=== PATIENT | male | born 1985 | race Caucasian/White ===

== ENCOUNTER 2018-09-10 20:01 | Emergency (ER) | payer SELFPAY ==
[2018-09-10 20:16] VITALS: BP 135/90; PULSE 91; TEMP 98.5; O2SAT 98
--- NOTE | 2018-09-10 20:59 | C.PDOC ---
History Of Present Illness 33 y/o male presents complaining of bilateral epistaxis x 2 weeks which is intermittent in nature and usually can be controlled with the exception of today. He states that he had profuse bleeding from both nostrils and coughed up blood clots. He denies digital trauma but admits to dry home environment. 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 He denies any recent illness, fever, chills, sore throat, N/V, and bleeding disorders. Time Seen by Provider: 09/10/18 20:40 Chief Complaint (Nursing): ENT Problem History Per: Patient, Family History/Exam Limitations: None Onset/Duration Of Symptoms: Intermittent Episodes Current Symptoms Are (Timing): Gone Symptoms Have Been: Episodic Anticoagulant/Antiplatlet Use?: No Recent Aspirin Use: No Past Medical History Reviewed: Historical Data, Nursing Documentation, Vital Signs Vital Signs: Last Vital Signs Temp 98.5 F 09/10/18 20:13 Pulse 91 H 09/10/18 20:13 Resp 16 09/10/18 20:13 BP 135/90 09/10/18 20:13 Pulse Ox 98 09/10/18 20:13 - Medical History PMH: No Chronic Diseases Surgical History: No Surg Hx Family History: States: No Known Family Hx - Social History Hx Tobacco Use: No Hx Alcohol Use: No Hx Substance Use: No - Immunization History Hx Tetanus Toxoid Vaccination: No Hx Influenza Vaccination: No Hx Pneumococcal Vaccination: No Review Of Systems Constitutional: Negative for: Fever, Chills Eyes: Negative for: Pain, Vision Change, Redness ENT: Positive for: Other (epistaxis) Cardiovascular: Negative for: Chest Pain, Palpitations Respiratory: Negative for: Cough Gastrointestinal: Negative for: Nausea, Vomiting, Abdominal Pain Skin: Negative for: Rash, Lesions Neurological: Positive for: Dizziness. Negative for: Headache Physical Exam - Physical Exam Appears: Well, Non-toxic, No Acute Distress Skin: Normal Color, Warm, Dry Head: Atraumatic, Normacephalic, No Tenderness Eye(s): bilateral: Normal Inspection, PERRL Ear(s): Bilateral: Normal (TM intact, nonerythematous ) Nose: Discharge (bright red blood but no active bleeding; turbinate hypertrophy right> left ), No Tenderness Oral Mucosa: Moist Throat: Normal, No Erythema, No Exudate Neck: Normal, Normal ROM, Supple Lymphatic: No Adenopathy Cardiovascular: Rhythm Regular Respiratory: Normal Breath Sounds, No Wheezing Gastrointestinal/Abdominal: Bowel Sounds, Soft, Tenderness Neurological/Psych: Oriented x3, Normal Speech, Normal Cognition, Normal Sensation ED Course And Treatment O2 Sat by Pulse Oximetry: 98 Medical Decision Making Medical Decision Making: A/P: Recurrent Epistaxis B/L - stable at this time; no active bleeding - Afrin in each nostril BID x 3 days then discontinue - counseled patient on prevention (nasal lubricant gel, humidifier) and how to stabilize it (pinching nose for 15 mins and lean forward, Afrin soaked cotton balls) - advised against digital trauma - follow up with ENT for further evaluation Disposition Counseled Patient/Family Regarding: Diagnosis, Need For Followup - Disposition Referrals: Jake Montilla MD [Staff Provider] - Disposition: HOME/ ROUTINE Disposition Time: 21:19 Condition: GOOD Additional Instructions: LEIF CABELLO, thank you for letting us take care of you today. Your provider was Wade Yo MD and you were treated for NOSE BLEED. The emergency medical care you received today was directed at your acute symptoms. If you were prescribed any medication, please fill it and take as directed. It may take several days for your symptoms to resolve. Return to the Emergency Department if your symptoms worsen, do not improve, or if you have any other problems. Please contact your doctor or call one of the physicians/clinics you have been referred to that are listed on the Patient Visit Information form that is included in your discharge packet. Bring any paperwork you were given at discharge with you along with any medications you are taking to your follow up visit. Our treatment cannot replace ongoing medical care by a primary care provider outside of the emergency department. Thank you for allowing the [facility] team to be part of your care today. Instructions: Nosebleeds (DC) Forms: [employer] ([place]) - Clinical Impression Clinical Impression: Epistaxis, recurrent - PA / LINUX ENGINEER / Resident Statement MD/DO has reviewed & agrees with the documentation as recorded.
[2018-09-10 21:51] VITALS: RESP 20
== END 2018-09-10 21:50 | disposition home or self-care (01) ==
LOC: C.ER 20:01
DX: R04.0 Epistaxis (principal)